=== PATIENT | female | born 1995 | race Caucasian/White ===

== ENCOUNTER → 2018-10-21 15:26 | Outpatient (CLI) | payer BC, SELFPAY ==
[2018-10-21 16:36] LABS: Free T3 3.2 pg/mL (2.18-3.98); T4 Free Direct 0.83 ng/dL (0.76-1.46); Thyroid Stim Hormone (TSH) 2.61 uIU/mL (0.358-3.74)
[2018-10-21 18:05] LABS: Chlamydia Trachomatis by PCR Negative (Negative); Neisserai gonorrhoeae by PCR Negative (Negative); Probe Check PASS; Sample Adequacy Control PASS; Specimen Processing Control PASS
[2018-10-26 11:36] LABS: HPV Reflexed? NOT INDICATED
== END ==
PROVIDERS: Visit Provider Obstetrics & Gynecology
DX: Z11.3 Encounter for screening for infections with a predominantly sexual mode of transmission (principal); Z12.4 Encounter for screening for malignant neoplasm of cervix; E03.9 Hypothyroidism, unspecified; G47.00 Insomnia, unspecified; L65.9 Nonscarring hair loss, unspecified
CPT/HCPCS: 36415; 84439; 84443; 84481; 87491; 87591; 87624; 88175; G0145

== ENCOUNTER → 2021-08-11 11:36 | Outpatient (CLI) | payer BC, SELFPAY ==
[2021-08-11 12:37] LABS: Absolute Neutrophil Count 5.3 X10^3/uL (2.0-7.7); Basophil# 0.03 X10^3/uL; Basophil% 0.4 % (0-1); Eosinophil# 0.05 X10^3/uL; Eosinophils% 0.7 % (0-5); Hemoglobin 12.5 g/dL (12.0-15.0); Lymphocyte % 21.2 % (19-41); Mean Corp Hgb Conc 33.8 g/dL (32-36); Mean Corpuscular Hgb 29.6 pg (27.0-32.0); Mean Corpuscular Volume 87.7 fL (81-99); Mean Platelet Vol. 9.2 fl (6.2-12.0); Monocyte# 0.52 X10^3/uL; Monocyte% 6.9 % (0-10); NRBC Flagged by Analyzer 0 % (0-5); Neutrophil # 5.31 X10^3/uL (2.7-7.7); Neutrophil % 70.4 % (47-70); Platelet Count 346 K/mm3 (150-450); RBC Distribution Width CV 12.7 % (11.6-14.6); Red Blood Count 4.22 M/mm3 (4.2-5.4); White Blood Count 7.5 K/mm3 (4.4-11.0)
[2021-08-11 12:49] LABS: Color, Urine Yellow (Yellow); Glucose, Dipstick Normal (Normal); Ketone-Dipstick Negative (Negative); Leukocyte Esterase-Dipstick 100 /ul (Negative); Nitrite-Dipstick Negative (Negative); Occult Blood-Urine 50 /ul (Negative); Protein-Dipstick 15 mg/dl (Negative); Specific Gravity, Urine 1.015 (1.002-1.030); Urine Bilirubin Dipstick Negative (Negative); Urine Clarity Sl. Cloudy (Clear); Urine Urobilinogen Normal (Normal)
[2021-08-11 13:17] LABS: Thyroid Stim Hormone (TSH) 1.21 uIU/mL (0.358-3.74)
[2021-08-11 13:22] LABS: Amphetamine Urine VISTA NEGATIVE (<1000 ng/mL); Barbiturate Urine VISTA NEGATIVE (< 200 ng/mL); Benzodiazepine Urine VISTA NEGATIVE (< 200 ng/mL); Cocaine Urine VISTA NEGATIVE (< 300 ng/mL); Ecstacy Urine VISTA NEGATIVE (< 500 ng/mL); Methadone Urine VISTA NEGATIVE (< 300 ng/mL); PCP Urine VISTA NEGATIVE (< 25 ng/mL); THC Urine VISTA NEGATIVE (< 50 ng/mL); Vista UDS pH Range 7
[2021-08-11 13:25] LABS: HIV - WCH Non-Reactive (Nonreactive); Hepatitis B Surface Antigen Non-Reactive (Nonreactive); Hepatitis C Antibody Non-Reactive (Nonreactive); Rubella IgG Reactive (Nonreactive); Syphilis Antibodies Non-reactive
[2021-08-15 00:06] LABS: Chlamydia By Nucleic Acid AMP Negative (Negative)
[2021-08-15 12:22] LABS: Gonococcus By Nucleic Acid AMP Negative (Negative)
== END ==
PROVIDERS: Visit Provider Obstetrics & Gynecology
DX: Z11.3 Encounter for screening for infections with a predominantly sexual mode of transmission (principal); Z34.81 Encounter for supervision of other normal pregnancy, first trimester
CPT/HCPCS: 36415; 80307; 81002; 84443; 85025; 86703; 86762; 86780; 86803; 87086; 87340; 87491; 87591

== ENCOUNTER 2022-01-02 10:07 | Outpatient (CLI) | payer BC, SELFPAY ==
[2022-01-02 10:48] LABS: Hematocrit 34.3 % (37-47); Hemoglobin 12.3 g/dL (12.0-15.0); Mean Corp Hgb Conc 35.9 g/dL (32-36); Mean Corpuscular Hgb 31.5 pg (27.0-32.0); Mean Corpuscular Volume 87.9 fL (81-99); Mean Platelet Vol. 8.8 fl (6.2-12.0); Platelet Count 291 K/mm3 (150-450); RBC Distribution Width SD 41.6 fl (35.1-43.9); White Blood Count 9.9 K/mm3 (4.4-11.0)
[2022-01-02 10:55] LABS: Glucose Challenge Gest 1H 50g 97 mg/dL (70-140)
== END 2022-01-02 23:59 | disposition home or self-care (01) ==
PROVIDERS: Visit Provider Obstetrics & Gynecology
DX: Z34.83 Encounter for supervision of other normal pregnancy, third trimester (principal)
CPT/HCPCS: 36415; 82950; 85027

== ENCOUNTER 2022-02-28 00:48 | Inpatient (IN) | payer BC, SELFPAY ==
[2022-02-28] VITALS (27 sets, daily range): BP systolic 83–135; BP diastolic 45–86; PULSE 68–110; RESP 15–18; TEMP 35.8–36.8; O2SAT 89–100; BMI 29.9
[2022-02-28] MEDS: Lactated Ringers 1,000 ML 200 ML IV (01:25)
[2022-02-28 01:26] LABS: Absolute Lymphocyte Count 1.87 X10^3/uL (0.83-4.51); Absolute Neutrophil Count 13.1 X10^3/uL (2.0-7.7); Basophil# 0.03 X10^3/uL; Basophil% 0.2 % (0-1); Eosinophil# 0.09 X10^3/uL; Eosinophils% 0.6 % (0-5); Hematocrit 35.8 % (37-47); Hemoglobin 11.9 g/dL (12.0-15.0); Lymphocyte # 1.87 X10^3/ul (0.83-4.51); Lymphocyte % 11.6 % (19-41); Mean Corp Hgb Conc 33.2 g/dL (32-36); Mean Corpuscular Hgb 30.8 pg (27.0-32.0); Mean Corpuscular Volume 92.7 fL (81-99); Mean Platelet Vol. 9.5 fl (6.2-12.0); Monocyte# 0.91 X10^3/uL; Monocyte% 5.6 % (0-10); NRBC Flagged by Analyzer 0 % (0-5); Neutrophil # 13.07 X10^3/uL (2.7-7.7); Neutrophil % 81.1 % (47-70); Platelet Count 235 K/mm3 (150-450); RBC Distribution Width CV 13.2 % (11.6-14.6); RBC Distribution Width SD 44.3 fl (35.1-43.9); Red Blood Count 3.86 M/mm3 (4.2-5.4); White Blood Count 16.1 K/mm3 (4.4-11.0)
[2022-02-28] MEDS: Betamethasone/Betamethasone 30 MG/5 ML Vial 12 MG IM (01:37)
--- NOTE | 2022-02-28 02:10 | HP.PCM.OB_ITS ---
History and Physical Date of Admission: 02/28/22 ACOG ANTEPARTUM RECORD - HISTORY AND PHYSICAL (02/28/2022) Name: ERICA DAMICO History of this : This is a 26 year old [id number] presents at 35 wks + 5 days gestation with c/o leaking of vaginal fluid and painful contractions. OB Physician: Thi Chen MD 's Physician: UNDECIDED ...................................................................... : 1995 Age: 26 Address: [address] [place] [address] Phone: H) [phone] (O) [phone] Insurance Carrier: [employer] [facility] [id number] Emergency Contact: PARAM DAMICO/SPOUSE [phone] ...................................................................... Final YANICK: 03/30/22 By Ultrasound: PARITY: (G-Total Pregnancies P-Fullterm,Premature,Induced AB,Spont AB, Ectopics, Multiple,Living) YANICK CONFIRMATION: By LMP: 06/23/21 Final YANICK: 03/30/22 OB PROBLEM LIST: Encourage office Childbirth and Classes. BOY! COVID vaccination completed 09/2021 EPDS completed with score of 5 NIPT - 46XY ALLERGIES: [place] Hives and/or rash [place] Hives and/or rash MEDICATIONS: epinephrine 0.3 mg/0.3 mL injection, auto-injector Inject 0.3mL IM once prn anaphylaxis + DHA 28 mg iron- 975 mcg-200 mg combo pack SOCIAL HISTORY: Smoking - Never Alcohol Use - denies drinking Diet - balanced Diet, gluten free, rare coffee and water intake- 2l liters Lifestyle - Exercise - active and Walking 1/2 hour 3-4 x week. Out w dogs. Employer - [employer] Job Description - Community Health Worker Illicit Drug Use - denies use of street drugs Sexual Activity - Residence - own Place of - [place] Hours Worked - 40 hours per week Spouse-Sig Other Name - Param Spouse-Sig Other Occupation - FF/EMT- PT [employer] ( [employer]) Spouse-Sig Other Phone No - [phone] PRIOR DELIVERY HISTORY DEL DATE GEST LAB WT LB WT OZ TYPE ANES LABOR TX ANTEPARTUM FLOW CHART VISIT GE RTC FU F F OH U U DATE WK MD WKS HT PN HR M SS BP ED WT OH GL D EF ST __ ____ ___ __ __ ___ __ __ __ ___ __ __ __ ___ __ February SHM + 124/80 sl 164 ne ne February SHM + 124/80 sl 164 ne ne February SHM 2 33 V + + 130/86 0 159 - - February SHM 2 33 V + + 138/88 0 158 - - 20 Feb 03 SHM 2 30 V + + 130/80 sl 155 tr - 29 Dec 31 SHM 2 27 B + + 132/82 0 153 - - 01 Dec 27 SHM 4 24 ? + + 102/80 0 149 tr - Nov 25 SHM 4 19 + + 100/72 0 143 - - 03 Oct 21 SHM 4 + ? 134/82 0 144 tr - 03 Sep 16 SHM 4 on US 124/70 140 tr - ANTEPARTUM NOTE(S): Feb 27 2022: Feb 27 2022: Feb 13 2022: see note Feb 07 2022: see note Jan 24 2022: see note Jan 02 2022: 1 hr GTT drawn Dec 05 2021: doing well, 1 hr supplies given Nov 07 2021: Comp u/s today, doing well Oct 09 2021: see note Sep 08 2021: mild nausea COMPREHENSIVE ANTEPARTUM NOTE(S): Feb 27 2022: Erica is here at 35.4 w. Feeling really good, Sees chiropractor weekly which helps a lot. Baby active. Some minimal edema in feet ladarius when up a lot. No specific concerns today. Aware of GBS and LARC for next visit. ABIODUN. Feb 13 2022: No further bleeding. Discussed Tdap, ob precautions. Plans [facility]. Feb 07 2022: Erica is 32w5d here for PNV good FM no edema. States she had a few drops of bright red bleed when she just went to the bathroom. C/O moderate cramping since saturday after intercourse. Cramping has been increasing since then. Long dip urine showed. tr leuks, pH6.5 moderate blood SG is 1.015. She is emotional and worried about her baby. BR Feb 07 2022: Speculum exam with no blood noted. Cervix 1cm at external os, closed internally. Nitrazine and fern negative. Bleeding precautions reviewed. FM, labor precautions. Discussed operative vaginal delivery, indications, as well as non-pharmaceutical pain management techniques. Jan 24 2022: Reviewed FM, PROM, and PTL. Encouaged Tdap vaccine. Overall doing well and without complaint. Started seeing a Chiropractor and feeling much better. Would like to go to a floating pool with magnesium once a month or so. Likely ok but will discuss further with Dr DEVRIES. LMT Jan 24 2022: Ok for floating pool. Will continue career placement specialist. PTL, FM precautions. Jan 02 2022: Erica is here for a pnv at 27/4. Good FM. No edema present. 1 hr GTT drawn, pt is B+. Discussed activity levels, pt states she tries to stay active by walking and stretching and wonders if higher levels of activity are okay at this stage in her . No other questions at this time. MK Jan 02 2022: Discussed physical activity, exercises to promote optimal positioning. PTL, FM precautions. Discussed PPBC, pt considering FABM. Dec 05 2021: Erica is here for a pnv at 23/4. Good FM, states baby is moving a lot. No edema present. Denies concerns/ questions at this time. 1 hr GTT ins tructions reviewed and supplies given for next appt. Dec 05 2021: Mild insomnia. Discuss positioning and support for sleep. [place] Dobbins, PTL precautions. Discussed labor analgesia, no preferences at this time. Nov 07 2021: Anatomy scan reviewed and wnl, EFW 75th%, MALE, POSTERIOR PLACENTA. ok for . Jake Dobbins, PTL precautions. Discussed childbirth class. Oct 09 2021: Erica is here with her for visit. She is doing pretty well. She did just have second Covid vaccine and was pretty ill with that. Interested in carrier and genetic screening. LMT Oct 09 2021: Pt opts for SMA/CF carrier screening and [id number] Plus. Discussed movement. Had COVID vaccination last week and reported 3 days of fatigue, aches, nausea, vomiting, headache. Sx nearly resolved, headache intermittent now. Sep 11 2021: TELEHEALTH NURSE CALL-- Erica is a 26 yo G 1 P 0 with YANICK 03-30-22 planning a vag del at [facility], unsure of epidural or post disch ped care. She plans to breastfeed. Her , Param is a FF/ EMT in [place]. 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 They are excited about the . Erica is highly allergic to strawberries Sep 08 2021: Erica is here for visit. She has mild nausea only. Genetic, carrier screening provided and will complete today. Undecided about carrier and genetic screening. LMT Sep 08 2021: Erica is here with her today. Recently recovered from COVID infection over . Appropriate interval growth on US today. Reviewed labs wnl, B positive. Discussed diet in . Counseled on aneuploidy screening tests, indications, limitations. Pt considering this further as well as carrier screening. Pt notes her brother is special needs following a brain aneurysm at Aug 11 2021: Erica is here for missed menses appt. Relates LMP of 06/23, + UPT today in office, EDC 03/30/22 which makes 7 weeks and zero days. Mostly feeling pretty good but has had 1 day the last couple weeks that she feels, hungry, nauseated and has emesis. She does not feel it has anything to do with what she eats. Discussed OTC Unisom and B6 if she desires. She relates that she works from home and has the REVIEW OF SYSTEMS: GENERAL - Denies fever, or chills SKIN - Denies rash, new skin lesions, or change in moles EYES - Denies blurred vision, or change in visual acuity EARS - Denies ear pain, or difficulty hearing NOSE - Denies nasal congestion, discharge, or bleeding MOUTH - Denies sore throat, or difficulty swallowing NECK - Denies pain or swelling RESPIRATORY - Denies shortness of breath, cough, wheezing CARDIOVASCULAR - Denies palpitations, chest pain, orthopnea, PND, peripheral edema, syncope or claudication GASTROINTESTINAL - Denies nausea, vomiting, diarrhea, constipation, Denies abdominal pain, melena and or bright red blood GENITOURINARY - Denies dysuria, frequency of urination, urgency, or hesitancy MUSCULOSKELETAL - Denies joint or muscle pain, or back pain NEUROLOGICAL - Denies localized numbness, weakness, or tingling PSYCHIATRIC - Denies depression, anxiety, substance abuse or suicide attempts ENDOCRINE - Denies heat or cold intolerance, weight loss or gain, increasing thirst HEMATO-IMMUNOLOGIC - Denies easy bruising, bleeding, oral ulcerations or recurrent infections GENETICS SCREENING: Age 35+ years: No Thalassemia: No Neural Tube Defect: No Down Syndrome: No SILVER-SACHS: No Sickle Cell Disease: No Hemophilia: No Musc. Dystrophy: No Cystic Fibrosis: No-declines screening [place] Chorea: No Mental Retardation: No Fragile X: No Other genetic: No Other defects: No SABs/still births: No Drugs since LMP: No INFECTION HISTORY: High risk AIDS: No High risk Hepatitis: No Exposed to TB: No Exposed to Herpes: No Rash/viral illness since LMP: No History of STD: No MENSTRUAL HISTORY: *Menses Amount/Duration: 5 to 7 daysMenses Regularity: regularFrequency: monthlyMenarche (Age Onset): 14* PAST SUMMARY: PARITY: 1. Total Pregnancies............ 1 2. Full Term Pregnancies........ 0 3. Premature.................... 0 4. Abortions - Induced.......... 0 5. Abortions - Spontaneous...... 0 6. Ectopics..................... 0 7. Multiple Births.............. 0 8. Living Children.............. 0 PHYSICAL EXAMINATION General Appearence: 26 yo female in no acute distress Vital Signs: AF, VSS Heart: RRR without rubs or gallops Lungs: CTA x 2 Breasts: deferred Abdomen: gravid Pelvis: Cervix: 7.5/80 Presentation: marilyn breech Station: 0 Fetus: Size: AGA Movement: present Heart: present Impression /Plan: 35 wks + 5 days intrauterine . PPROM with breech presentation. Proceed with section. Procedural r/b/i/a reviewed and pt agreeable to proceed. Assessment & Plan Assessment/Plan (1) premature rupture of membranes (PPROM) delivered, current hospitalization: PLAN: Received GBS ppx for GBS unknown prior to confirming presentation (2) 35 weeks gestation of : (3) Breech presentation: QUALIFIERS: Fetus number: single or unspecified fetus Qualified Code(s): O32.1XX0 - Maternal care for breech presentation, not applicable or unspecified PLAN: primary c/s
[2022-02-28] MEDS: Cefazolin 2 GM in 0.9% Normal Saline 100 ML IV (02:21)
[2022-02-28 03:39] LABS: Group B Strep DNA By PCR Negative (Negative); Internal Control PASS; Probe Check PASS; Specimen Processing Control PASS
--- NOTE | 2022-02-28 03:41 | OP.PCM_ITS ---
Assessment & Plan (1) Breech presentation: QUALIFIERS: Fetus number: single or unspecified fetus Qualified Code(s): O32.1XX0 - Maternal care for breech presentation, not applicable or unspecified (2) 35 weeks gestation of : (3) premature rupture of membranes (PPROM) delivered, current hospitalization: Maternal Data Information Final YANICK: 03/30/22 Final YANICK Source: US <20 weeks Gestational age: 35w5d Doctor Who Attended Delivery: Matthew Bernabe Details Operative Information Date of Procedure: 02/28/22 Pre-Operative Diagnosis: 1. 35-5/7 weeks gestation 2. premature rupture membranes 3. breech presentation Post-Operative Diagnosis: 1. 35-5/7 weeks gestation 2. premature rupture membranes 3. breech presentation 4. Left broad ligament laceration Indications for : Malpresentation (Breech) Indications Narrative: 26-year-old 1 para 0 presents at 35-5/7 weeks gestational age with PPROM. She progressed rapidly from 5 to 7 cm dilation and malpresentation was noted with a breech presentation. The patient was advised to proceed with section. Procedural risks, benefits, indications and alternatives were reviewed and she was agreeable to proceed. Classification: JEANMARIE Procedure Type: low transverse cyber incident handler #1: Cari Monteiro Type of Anesthesia: Spinal Anesthesiologist: Tierra Fernandes Antibiotic Given: Ancef 2 grams IV x1 and Zithromax 500 mg/5 mL X1 Drain: Costello to straight drain Estimated Blood Loss: 500 ml Fluids Replaced: 750 ml Time of Delivery: 02:38 Findings Description of Procedure: The patient was brought to the operating room placed in dorsal supine position. Vaginal and perineal prep was performed with placement of Costello catheter. The patient sat upright and spinal analgesia was placed. And she was repositioned into dorsal supine with left lateral tilt. The beta splash was done and the abdomen was draped. The spinal was found to be adequate. A Pfannenstiel incision was made using the scalpel and brought down to incise the subcutaneous tissue and the rectus fascia at the midline. The subcutaneous and fascial incisions were extended. The superior leaflet of the rectus fascia was grasped using Rodolfo clamps and the underlying rectus muscle was dissected bluntly and sharply from the fascia. In similar fashion the inferior leaflet of the rectus fascia of was dissected from the rectus. The rectus abdominals muscles were at the midline and the peritoneum identified and entered bluntly. The peritoneal incision was extended. The bladder blade was placed into the abdomen. The vesicouterine peritoneal fold was identified and incised with bladder flap creation. The bladder blade was repositioned into the abdomen. A low transverse hysterotomy was made using the Metzenbaum scissors. With assistance of a hand transvaginally breech was elevated to the hysterotomy and delivered to the level of the shoulders with the arms then head delivering spontaneously with support. A nuchal cord x1 was reduced. The mouth and nares were bulb suctioned. The cord was doubly clamped and cut at approximately 30 seconds of life and the was passed to waiting for nursery personnel. The placenta was expressed from the uterus and appeared intact on inspection. The uterus was exteriorized and cleared of debris. A left broad ligament extension into the avascular portion of the broad ligament was noted. The durotomy was reapproximated using 0 Vicryl Rapide running lock stitch in a single layer with excellent hemostasis. The pos terior cul-de-sac and anterior cul-de-sac were further inspected with a significant defect noted with the laceration of the broad ligament. The posterior left broad ligament peritoneum was reapproximated using 3-0 Monocryl. A separate running suture of 3-0 Monocryl was used to reapproximate the anterior left broad ligament with complete closure of the defect. The uterus and adnexa were returned to the abdomen and hysterotomy again inspected with excellent hemostasis maintained. The peritoneum was reapproximated using 2-0 Vicryl. The rectus fascia was reapproximated using oh strata fix running suture. Subcutaneous tissue was reapproximated using 2-0 Vicryl. The skin was closed using 4-0 Monocryl by the COFFEE BAR ATTENDANT under my supervision. Mepilex occlusive dressing was placed over the incision. The patient was transferred to the recovery room without complication. Sponge and needle counts were correct x2. Presentation: Positive for Matthew Breech Amniotic Membrane Rupture Type: Spontaneous Time of Membrane Ruptured: 2220h 02/27/22 Amniotic Fluid Description: Clear Specimen(s) Sent to Pathology: Placenta Cord Vessel Description: 3 Vessels Cord Entanglement: Around neck x 1, loose Infant A Gender: Male (1 minute): 1 (5 minute): 6 (9 at 10 minutes of life) Delayed Cord Clamping: No Complications Risks of Surgery Discussed w/Patient: Bleeding, Anesthesia Risks, Infection and Injury to surrounding structure(s) including bowel and bladder
[2022-02-28] MEDS: Oxytocin 30 units/NS 500 ml 30 UNITS/500 ML IV.SOLN 167 UNITS IV (03:43)
[2022-02-28] MEDS: Acetaminophen 500 MG Tablet 1000 MG PO ×4 (04:09→21:51)
[2022-02-28] MEDS: Ketorolac 30 MG/ML Syringe IV ×4 (04:10→21:52)
[2022-02-28] MEDS: 0.9% Saline Lock 10 ML Syringe IV ×5 (04:10→21:55)
--- NOTE | 2022-02-28 06:15 | NURSING ---
At 0605 RN in room and asked pt if she would like to get in wheelchair to see baby in SCN. Pt declines at this time as her legs are still heavy. This RN had gone over to [facility] and taken pictures of infant on mother's phone. Mother states she will rest and go to [facility] later.
--- NOTE | 2022-02-28 06:20 | NURSING ---
Late entry: at 0445 patient instructed on pumping with double pump. Patient pumped until 500 and colostrum collected and taken to SCN. This RN instructed patient to pump every 2-3 hours and pt set an alarm on her phone to remember to pump.
[2022-02-28] MEDS: Lactated Ringers 1,000 ML 100 ML IV (06:46)
[2022-02-28] MEDS: Ondansetron 4 MG/2 ML Vial IV (06:49)
[2022-02-28] MEDS: Senna/Docusate Sodium 1 Tablet PO (09:55)
[2022-02-28] MEDS: Prenatal Vits Tablet 1 TABLET PO (09:56)
[2022-02-28] MEDS: CLARIFY ORDER NOTE (18:17)
--- NOTE | 2022-02-28 19:27 | NURSING ---
Late entry: Patient came in with c/o contractions SROM at 2220 02/27/22. Pt states it was initially clear but now bloody. On exam, pt found to be /+1 and grossly ruptured. SROM not sent as bloody show noted and not indicated for ROM+ test. Patient with allergies and anaphylactic reaction to peach and strawberry flavorings. Nila Roberts RN charge spoke with Dr. Mora, pharmacist and Dr. Fernandes from anesthesia and it was determined not to give patient bicitra because of these allergies.
[2022-03-01 03:53] VITALS: BP 114/67; PULSE 63; RESP 16; TEMP 36.2; O2SAT 99
[2022-03-01] MEDS: Acetaminophen 500 MG Tablet 1000 MG PO ×4 (03:59→21:56)
[2022-03-01] MEDS: Ibuprofen 600 MG Tablet PO ×4 (04:00→21:56)
[2022-03-01 04:58] LABS: Hematocrit 33.2 % (37-47); Hemoglobin 11.2 g/dL (12.0-15.0); Mean Corp Hgb Conc 33.7 g/dL (32-36); Mean Platelet Vol. 9.1 fl (6.2-12.0); Platelet Count 265 K/mm3 (150-450); RBC Distribution Width CV 13.2 % (11.6-14.6); RBC Distribution Width SD 43.8 fl (35.1-43.9); Red Blood Count 3.61 M/mm3 (4.2-5.4); White Blood Count 17.3 K/mm3 (4.4-11.0)
--- NOTE | 2022-03-01 07:43 | PCM.PN.OB ---
Subjective Subjective day 1. Feeling well. Somewhat sore, pain controlled. Pumping. Objective Data Objective Data Vital Signs: Vital Signs Temp Pulse Resp BP Pulse Ox 97.1 F L 63 16 114/67 99 03/01/22 03:53 03/01/22 03:53 03/01/22 03:53 03/01/22 03:53 03/01/22 03:53 Oxygen Delivery Method Room Air Weight: 74.389 kg Body Mass Index (BMI) 29.9 Intake & Output: Intake and Output for Last 24 Hours 02/27/22 02/28/22 03/01/22 23:59 23:59 23:59 Intake Total 3150.33 / 3150.33 Output Total 1650 / 1650 Balance 1500.33 / 1500.33 Lab / Micro Data Result Diagrams: 03/01/22 04:50 Labs: Laboratory Results - last 24 hr 03/01/22 04:50: WBC 17.3 H, RBC 3.61 L, Hgb 11.2 L, Hct 33.2 L, MCV 92.0, MCH 31.0, MCHC 33.7, RDW Std Deviation 43.8, RDW Coeff of Lenora 13.2, Plt Count 265, MPV 9.1 Micro: Microbiology 02/28/22 01:25 Nasal Secretion SARS-CoV-2 Antigen (Rapid) - Final Physical Exam Const alert, oriented x3 and no apparent distress HEENT normocephalic Head and Scalp: atraumatic Neck full ROM Resp normal respiratory effort Cardio regular rate GI normal to inspection, nondistended, normoactive bowel sounds GI Narrative: Uterus 2 cm below umbilicus. Dressing clean and dry. Minimal tenderness. Back/Spine normal ROM Extremity normal to inspection Extremity Narrative: Minimal pedal edema Neuro no focal motor deficits and no sensory deficits noted Psych mental status grossly normal and affect normal Assessment & Plan (1) Delivery by section: PLAN: Postop day 1 status post primary section for breech presentation, delivery. Pain well controlled. Pumping. Baby is in special care nursery and is doing well per patient. Likely plan for discharge tomorrow. Follow-up 2 weeks postop and 6-week visit. (2) Post-operative pain: (3) state: (4) Breech presentation: QUALIFIERS: Fetus number: single or unspecified fetus Qualified Code(s): O32.1XX0 - Maternal care for breech presentation, not applicable or unspecified
[2022-03-01 07:50] VITALS: BP 104/57; PULSE 91; RESP 16; TEMP 36.3; O2SAT 97
[2022-03-01] MEDS: Senna/Docusate Sodium 1 Tablet PO (10:24)
[2022-03-01] MEDS: Prenatal Vits Tablet 1 TABLET PO (10:25)
[2022-03-01 13:45] VITALS: BP 121/80; PULSE 89; RESP 16; TEMP 36.1; O2SAT 98
[2022-03-01 20:06] VITALS: BP 106/59; PULSE 100; RESP 16; TEMP 36.4; O2SAT 98
[2022-03-02 02:30] VITALS: BP 108/68; PULSE 90; RESP 18; TEMP 36.9; O2SAT 97
[2022-03-02] MEDS: Ondansetron ODT 4 MG Tablet PO (03:13)
[2022-03-02] MEDS: Acetaminophen/Butalbital/Caffe 1 Tablet PO (04:38)
[2022-03-02] MEDS: Ibuprofen 600 MG Tablet PO ×2 (04:41→09:43)
--- NOTE | 2022-03-02 07:09 | PCM.PN.OB ---
Subjective Subjective Overnight patient with headache. Feels headache starts at her shoulders and traps, improves when she lays down. No visual changes at this time. Feels like the headache has improved since treatment Objective Data Objective Data Vital Signs: Vital Signs Temp Pulse Resp BP Pulse Ox 98.4 F 90 18 108/68 97 03/02/22 02:30 03/02/22 02:30 03/02/22 02:30 03/02/22 02:30 03/02/22 02:30 Oxygen Delivery Method Room Air Weight: 164 lb Body Mass Index (BMI) 29.9 Intake & Output: Intake and Output for Last 24 Hours 02/28/22 03/01/22 03/02/22 23:59 23:59 23:59 Intake Total 3150.33 / 3150.33 Output Total 1650 / 1650 Balance 1500.33 / 1500.33 Lab / Micro Data Result Diagrams: 03/01/22 04:50 Micro: Microbiology 02/28/22 01:25 Nasal Secretion SARS-CoV-2 Antigen (Rapid) - Final Physical Exam Const alert, oriented x3, no apparent distress, average body habitus, healthy appearing and well nourished HEENT normocephalic and moist oral mucous membranes Head and Scalp: atraumatic Face and Sinus: normal facial exam Eyes PERRL Neck full ROM Resp normal respiratory effort, no retractions and no use of accessory muscles GI normal to inspection, nondistended, normoactive bowel sounds GI Narrative: Bandage clean dry and intact Extremity normal to inspection, full ROM and no clubbing, cyanosis or edema Psych mental status grossly normal, affect normal, speech normal and activity/motor behavior normal Assessment & Plan (1) Delivery by section: PLAN: day 2 status post primary section for breech. Patient with headache, muscle spasms versus spinal headache. Patient given Fioricet and caffeine, some improvement. Anesthesia consult placed. Pending results will consider discharge home today versus tomorrow
--- NOTE | 2022-03-02 07:42 | NURSING ---
Dr. Dejesus from anesthesia assessed patient. Pt wants to try caffeine and hydration to help with her mild spinal GAMEZ before doing a blood patch. Order received from Dr. Dejesus for caffeine tablet.
[2022-03-02 08:55] VITALS: BP 111/68; PULSE 72; RESP 16; TEMP 36.6; O2SAT 97
[2022-03-02] MEDS: Acetaminophen 500 MG Tablet 1000 MG PO (09:40)
[2022-03-02] MEDS: Senna/Docusate Sodium 1 Tablet PO (09:42)
[2022-03-02] MEDS: Caffeine 200 MG Tablet PO (09:45)
--- NOTE | 2022-03-02 10:07 | NURSING ---
AM assessment and VS performed with student and instructor reviewed student charting-Sukhwinder RN, AU instructor
[2022-03-02 10:24] VITALS: BP 116/83; PULSE 93; RESP 15; TEMP 36.2; O2SAT 97
--- NOTE | 2022-03-02 12:51 | NURSING ---
Called [facility] to inform Dr. Veronica Carvalho that patient would like to be discharged. Pt states that her GAMEZ is much better than it was this AM and that she doesn't think that she needs to stay a patient anymore. Left message with the nurse to give to Dr. Carvalho.
--- NOTE | 2022-03-02 13:23 | NURSING ---
Dr. Veronica Carvalho calls at this time. Order received for discharge
[2022-03-02 13:40] VITALS: BP 113/79; PULSE 94; RESP 16; TEMP 36.4; O2SAT 98
[2022-03-02] MEDS: Prenatal Vits Tablet 1 TABLET PO (13:51)
--- NOTE | 2022-03-02 16:26 | PCM.DC.BLA ---
Discharge Summary Date of Admission: 02/28/22 Date of Discharge: 03/02/22 Summary: Patient arrived on 02/28/2022 with premature rupture of membranes and found to be breech at 35 weeks. For primary section performed on 02/28/2022. Baby to special care. Mother with spinal headache seen by anesthesia started on caffeine. Patient discharged home on caffeine. Discharged home on 03/02/2022 Meaningful Use Info Meaningful Use Diagnoses (Choose all that apply): None applicable Discharge Plan Admission Admit Date/Time: 02/28/22 00:48 Primary Reason for Your Visit: P PROM Attending Provider: Thi Rashid Instructions Patient Instructions: Section () Additional Instructions / Restrictions: Regular diet, no intercourse for 4 to 6 weeks. No heavy lifting over 25 pounds for 2 to [address] when not taking opioids. Call if fevers, chills, chest pain, shortness of breath. Follow-up 2 weeks postoperatively Discharge Orders/Prescriptions Prescriptions: New oxycodone 5 mg Tablet 5 mg PO Q6H PRN PRN (Reason: Pain Score 7-10) 4 Days Qty: 16 RF: 0 Continued [id number] 1 mg Tablet 1 tab PO DAILY RF: 0 loratadine [Claritin] 10 mg Tablet 10 mg PO DAILY RF: 0 omega-3 fatty acids Capsule 1,000 mg PO DAILY RF: 0 Discontinued pyridoxine (vitamin B6) [Vitamin B-6] 25 mg Tablet 25 mg PO DAILY RF: 0 Disposition Disposition (needs filled in before D/C Order can be placed): Home, Self Care
--- NOTE | 2022-03-02 16:30 | CASEMGMT ---
Social Work Brief Assessment Labor and Delivery Unit Patient Address: [address] [place] [id number] Phone number: [phone] Date of Referral/Notification: 03/02/2022 Time of Referral: [phone] Referred By: Social work identification Date of Intervention: 03.02.2022 Reason for Referral: Infant admitted to the special care nursery at [place], first-time mother, support and resources Informant: Medical record and mother of baby (MOB) Heidi Arredondo History: KATHY is a 26-year-old female who is to the father of baby (FOB) Lele Arredondo. MOB and FOB have been together since high school. MOB denies any type domestic violence or intimate partner violence. 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 FOB is a water safety instructor and EMT. baby is the first child for both. baby boy is to be named Reymundo Arredondo, who delivered via section at 35 weeks gestation. Apgars 1-6-9 at 1-5-10 minutes of life respectively. MOB denies any mental health history for self, though endorses there is a family history of depression, depression, bipolar disorder and alcohol use issues. Denies any history of suicidal ideation, intent, or attempts. No thoughts of harm to others. Denies any type of substance use issues for self. Maternal drug screen negative on 01/09/2021. Assessment: Met with the MOB at 's bedside in the special care nursery, where the baby was transferred due to prematurity and respiratory distress at delivery. MOB fed infant and attended to the infant throughout social work visit. MOB was attentive and handled baby appropriately, appearing to be bonding with the infant. There have been no voiced concerns regarding parent-child interactions or bonding. MOB held good eye contact, bright affect, mood appropriate, with receptivity to discussion about support and mood issues. MOB reports to have necessary supplies to care for the including a crib, car seat, bassinet and clothing/diapers/wipes. MOB reports that feeding is going well for the baby and will have adequate support at time of discharge. MOB reports the FOB is now working part-time, which works well for the FOB to be home more with the MOB. MOB reports there is plenty of family in the area to help when needed. MOB reports that she and her family have been open in discussing mental health, especially with family history of depression and . MOB reports to feel her family will speak up should MOB start showing signs of depression or anxiety. Educated MOB risk factors for mood and anxiety disorders, including risk for psychosis with bipolar in the family. MOB accepted a packet on mood and anxiety disorders. Accepted information on [facility] and will discharge from their respective units when medically ready. [facility]. Agreed to a nurse visit through the [facility]. Plan: MOB and will discharge from respective units, when medically stable. nurse visit will be completed for additional support at home going. No further needs requested or indicated. -BRAVO Alexis, KEVIN *This note was generated with [employer] dictation software. It may contain incorrect words, spelling, and punctuation that were not noted in review of the chart prior to signing*
== END 2022-03-02 13:50 | disposition home or self-care (01) | DRG 788 ==
LOC: WPOUT 00:50 → WP 00:50
PROVIDERS: Admitting Provider Obstetrics & Gynecology; Visit Provider Obstetrics & Gynecology
DX: O32.1XX0 Maternal care for breech presentation, not applicable or unspecified (principal); O42.913 Preterm premature rupture of membranes, unspecified as to length of time between rupture and onset of labor, third trimester; Z3A.35 35 weeks gestation of pregnancy; O69.81X0 Labor and delivery complicated by cord around neck, without compression, not applicable or unspecified; Z37.0 Single live birth
CPT/HCPCS: 59025; 59050; 85025; 85027; 86850; 86900; 86901; 87077; 87081; 87186; 87426; 87653; 99218; 99251; J7120; A4216; G0378; G0463; J0702; J2405

== ENCOUNTER → 2022-04-10 | Outpatient (CLI) | payer BC, SELFPAY ==
[2022-04-16 13:19] LABS: HPV Reflexed? NOT INDICATED
== END | disposition home or self-care (01) ==
LOC: LABSPEC 17:27
PROVIDERS: Visit Provider Obstetrics & Gynecology
DX: Z12.4 Encounter for screening for malignant neoplasm of cervix (principal)
CPT/HCPCS: 88175; G0145